=== PATIENT | male | born 1985 | race African-American/Black ===

== ENCOUNTER 2025-06-25 14:14 | Emergency (ER) | payer SELFPAY ==
[~2025-06-25] VITALS: Ht 188 cm; Wt 93.9 kg
--- NOTE | 2025-06-25 15:01 | ED.PDOC ---
History of Present Illness(SKN HPI Comments A 39 year old male with no past medical history presents to the emergency department with a chief complaint of head injury onset today (06/25/25). Patient states he was at work, walking to his car, went under a metal box, hit top of his head with corner of metal box. Patient began bleeding, bleeding was controlled prior to ED arrival. Currently rates pain 2/10. No other symptoms or modifying factors present at this time. Denies LOC, headache Denies dizziness, blurry vision Denies numbness/tingling Denies nausea, vomiting Chief Complaint: Head Injury Time Seen by MD: 14:50 History of Present Illness: Medications, Allergies Allergies: Coded Allergies: NO KNOWN ALLERGIES (Unverified , 06/25/25) Information Source: Patient Mode of Arrival: Ambulatory Severity: Moderate Timing: Hours Duration: Since onset Prehospital treatment: None Location: Head Mechanism: Spontaneous Onset Developed: Other (abrasion) Occurence: Outdoors Object: Other (metal) Wound Type: Abrasion Tetanus: >5 Years History of: None Associated Signs and Symptoms: None Past Medical History PAST MEDICAL HISTORY: Denies Surgical History: Denies all surgeries Family History Family History: Reviewed,noncontributory to illness, No family hx of Cancer, No family hx of DM, No family hx of Heart madi, No family hx of HTN, No family hx ofKidney madi, No family hx of Liver madi, No family hx of Lung madi, No family hx of Stroke Social History Smoker: Non-Smoker Alcohol: Denies ETOH Use Drugs: Denies Drug Use Lives In: Home All Other Systems: Reviewed and Negative (as per HPI) Physical Exam General Appearance: Normal HEENT: Head (linear 1 cm superficial abrasion to posterior aspect of scalp with no active bleeding, foreign body or TTP), Normal ENT Inspection, Pharynx Normal, TMs Normal Neck: Full Range of Motion, Non-Tender, Normal, Normal Inspection Respiratory: Chest Non-Tender, Lungs Clear, No Accessory Muscle Use, No Respiratory Distress, Normal Breath Sounds Cardiovascular: No Edema, No JVD, No Murmur, No Gallop, Normal Peripheral Pulses, Regular Rate/Rhythm Breast Exam: Deferred Gastrointestinal: No Organomegaly, Non Tender, No Pulsatile Mass, Normal Bowel Sounds, Soft Genitalia: Deferred Pelvic: Deferred Rectal: Deferred Extremities: No calf tenderness, Normal capillary refill, Normal inspection, Normal range of motion, Non-tender, No pedal edema Musculoskeletal : Apperance: Normal Neurologic: Alert, assistant manager of operations II-XII nml as Tested, No Motor Deficits, Normal Affect, Normal Mood, No Sensory Deficits Cerebellar Function: Normal Reflexes: Normal Skin: Dry, Normal Color, Warm Lymphatic: No Adenopathy Was a procedure done? Was a procedure done?: No X-Ray, Labs, Meds, VS Vital Signs Date Time Temp Pulse Resp B/P (MAP) Pulse Ox O2 Delivery O2 Flow Rate FiO2 06/25/25 15:20 85 17 97 Room Air 06/25/25 15:20 98.7 78 17 134/87 (103) 97 98.7 06/25/25 14:15 97.9 99 20 123/87 96 97.9 X-Ray, Labs, Meds, VS Comment A 39 year old male with no past medical history presents to the emergency [facility] with a chief complaint of head injury onset today (06/25/25). Patient presents for a direct blow in the head. No active bleeding on the time of evaluation. GCS 15. Neurovascular sensation intact. No focal deficits. Patient alert awake and oriented. Pronator drift negative. Patient's is not on blood thinners. Per [facility] rule we will defer advance imaging at this time. On reevaluation, patient had symptomatic improvement. Patient is stable for discharge at this time. External notes reviewed. Test results and diagnostic imaging interpreted. All diagnostic findings, discharge care, education and instructions provided Follow-up with PCP in 2 to 3 days Patient verbalized understanding and agreed to treatment plan Vital signs stable, afebrile, no acute distress noted Patient ambulatory with strong steady gait Advised to return precautions for any new or worsening symptoms, return to ER immediately for re-evaluation Patient is aware that the purpose of this visit was for an acute medical emergency requiring emergent stabilization. Chronic conditions, including malignancies have not been ruled out. Patient is instructed to follow up with PCP as directed and discharge instructions for continued care and workup. If unable to arrange follow-up, patient is to return to the emergency department for reassessment. Patient (parent or legal guardian if applicable) was given verbal and written discharge instructions and acknowledges understanding. Additional MDM Review of External, Non-ED records: External records reviewed. Discussion with independent historian (EMS, family) history obtained from the patient/parents (if applicable) at bedside Chronic conditions affecting care: None Social determinants of health affecting care: None I considered escalation of care to admission for this patient, however given the reassuring workup, the patient is safe for outpatient management. Time of 1ST Reevaluation: 15:20 Reevaluation 1ST: Improved Patient Education/Counseling: Diagnosis, Treatment Family Education/Counseling: No Family Present SEPSIS Sepsis Screen Date sepsis recognized/suspect: Jun 25, 2025 Time Sepsis recognized/suspect: 1418 Recent Procedure: No On Antibiotic Therapy: No Respiratory Rate >20: No Heart Rate >90: No Temp<36 C (96.8 F) or >38.3 C: No SBP <90 or MAP <65 mmHG: No New Acute Mental Status Change: No Is the patient on CPAP, BIPAP,: No Vital Signs Date Time Temp Pulse Resp B/P (MAP) Pulse Ox O2 Delivery O2 Flow Rate FiO2 06/25/25 15:20 85 17 97 Room Air 06/25/25 15:20 98.7 78 17 134/87 (103) 97 98.7 06/25/25 14:15 97.9 99 20 123/87 96 97.9 Departure 1 Departure Time of Disposition: 14:54 Impression: Primary Impression: Scalp abrasion Qualified Codes: S00.01XA - Abrasion of scalp, initial encounter Additional Impression: Minor head injury Qualified Codes: S09.90XA - Unspecified injury of head, initial encounter Disposition: 01 HOME / SELF CARE / HOMELESS Condition: Stable Discharged With: Self Critical Care Note Critical Care Time?: No Stability Stability form required: No I personally scribed for JIMMY YOUNG NP ([email or web address]) on 06/25/25 at 15:01. Electronically submitted by Lola Banuelos ([email or web address]). JIMMY YOUNG NP Jun 25, 2025 15:01
[2025-06-25 15:20] VITALS: BP 134/87; PULSE 85; RESP 17; TEMP 98.7; O2SAT 97
== END 2025-06-25 15:22 | disposition home or self-care (01) ==
LOC: ER 14:14
DX: S00.01XA Abrasion of scalp, initial encounter (principal); S09.90XA Unspecified injury of head, initial encounter; W22.8XXA Striking against or struck by other objects, initial encounter; Y93.89 Activity, other specified; Y92.89 Other specified places as the place of occurrence of the external cause; Y99.8 Other external cause status